=== PATIENT | male | born 1940 | race Caucasian/White ===

== ENCOUNTER 2017-03-09 11:11 | Outpatient (CLI) | payer OTHER ==
[~2017-03-09 11:11] MED LIST: COREG12.5 MG PO; COREG25 MG PO; CRESTOR10 MG PO; ECOTRIN LOW STR81 MG PO; ICAPS AREDS FORMULA PO; INVANZ1 GM IV; PLAVIX75 MG PO; VICODIN EQUIVAL1 TAB PO; VITAMIN D-32000 UNIT PO; ZESTRIL5 MG PO
--- NOTE | 2017-03-09 11:59 | DIAGNOSTIC IMAGING REPORT ---
PROCEDURE: XR FOOT 3 VIEWS BILATERAL INDICATION: HX OF OSTEOMYELITIS CURRENT CHRONIC WOUND AT 5TH METATARSAL TECHNIQUE: Three views. COMPARISON: Left foot films dated 06/24/2015 FINDINGS: RIGHT FOOT: There is an overlying soft tissue ulceration with indistinct cortical margin of the distal fifth metatarsal suspicious for osteomyelitis LEFT FOOT: Status post resection of the first MTP joint. No osteolysis or cortical destruction. IMPRESSION: 1. Ulceration and osteomyelitis right distal fifth metatarsal. 2. Left first MTP resection. No osteolysis or cortical destruction.
== END 2017-03-09 23:00 ==
LOC: XR SRH 11:11
DX: L97.519 Non-pressure chronic ulcer of other part of right foot with unspecified severity (principal); M86.8X7 Other osteomyelitis, ankle and foot

== ENCOUNTER 2017-05-04 09:58 | Outpatient (CLI) | payer OTHER ==
--- NOTE | 2017-05-04 10:20 | DIAGNOSTIC IMAGING REPORT ---
PROCEDURE: XR CHEST 2 VIEW INDICATION: PRE HYPERBARIC TREATMENT TECHNIQUE: PA and lateral views. COMPARISON: 06/26/2015 chest FINDINGS: Lungs are clear. Status post coronary artery bypass graft. Heart and mediastinum are normal. Thorax is normal. IMPRESSION: 1. Status post coronary artery bypass graft. 3. Otherwise negative chest.
== END 2017-05-04 23:00 ==
LOC: XR SRH 09:58
DX: Z01.812 Encounter for preprocedural laboratory examination (principal); Z98.61 Coronary angioplasty status

== ENCOUNTER 2017-06-09 07:24 | Inpatient (IN) | payer OTHER ==
[~2017-06-09] VITALS: Ht 182.9 cm; Wt 77.5 kg
--- NOTE | 2017-06-09 13:35 | DIAGNOSTIC IMAGING REPORT ---
PROCEDURE: CTA ABDOMEN PELVIS INDICATION: Severe back and abdominal pain. TECHNIQUE: 125 mL of Isovue 370 injected intravenously and axial images were obtained of the entire abdomen, and pelvis with 3D MIP sagittal and coronal reformations. COMPARISON: None. FINDINGS: ABDOMEN: 1.8 cm spiculated right lower lobe density. No effusion. Sternotomy and coronary stents. Normal heart size. Moderate atherosclerosis of the aorta without dissection or aneurysm. 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 There are several moderately dilated loops of then mid small bowel with air-fluid levels and normal caliber of the distal small bowel. Transition point is in the left abdomen with a beak live configuration which could be due to internal hernia or possibly an adhesion. There is wall thickening of a loop of small bowel in the left lower quadrant, just distal to the obstruction. There is a poorly marginated 2 cm hypoenhancing left hepatic lobe lesion and a 5 mm hypoenhancing right hepatic lobe lesion. Small calcified gallstone. Multiple small calcifications throughout the pancreas suggestive of chronic pancreatitis. Spleen, adrenal glands and right kidney are normal. Mild left renal cortical atrophy and small old lower pole cyst. Mild to moderate diverticulosis of the ascending, transverse and descending colon. Small ascites in the left abdomen. Small hiatal hernia. PELVIS: Severe atherosclerosis of the iliac and femoral vessels but no aneurysm or dissection. Normal appendix. Moderate sigmoid diverticulosis. Mildly enlarged prostate. Circumferential urinary bladder wall thickening. Small ascites. Mild degenerative changes of the spine. IMPRESSION: 1. Mid small bowel distention with air-fluid levels and transition point in the left abdomen consistent with a small bowel obstruction, possibly from an internal hernia or adhesion 2. Thickened loop of small bowel in the left lower quadrant, just distal to the obstruction, possibly from ischemia 3. 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 Small ascites 5. Cholelithiasis 6. Multiple of pancreatic calcifications versus suggestive of chronic pancreatitis 7. Diverticulosis 8. Enlarged prostate with urinary bladder wall thickening which may represent trabeculation. Consider cystitis. 9. Right lower lobe 1.8 cm spiculated pulmonary mass suspicious for neoplasm. 10. 2 cm hypoenhancing left hepatic lobe lesion, suspicious for a metastasis. 11. Results discussed with Dr. Rey
--- NOTE | 2017-06-09 13:36 | ED CLINICAL REPORT ---
Clinical Report - Physicians/[facility] [address] [place] [address] 06/09/2017 7:25 Patient: SANDY PAZ Time Seen: 0814; initial patient contact. Arrived- By private vehicle. Historian- patient. HISTORY OF PRESENT ILLNESS Chief Complaint: ABDOMINAL PAIN. It is described as "pain" and it is described as located in the periumbilical area and radiating to the low back. At its maximum, severity described as moderate. When seen in the E.D., severity described as moderate. Modifying factors. Not worsened by anything. Not relieved by anything. This started last night and is still present. It was abrupt in onset and has been constant. The patient has had nausea and loss of appetite. No vomiting or diarrhea. Similar symptoms previously: None. Recent medical care: Not recently seen/assessed. REVIEW OF SYSTEMS No black stools, difficulty with urination, pain with urination, bloody stools or fever. No chills. Last bowel movement: yesterday. He reports decreased flatus. He also says that he typically has 2 bowel movements each day. However he has had none since yesterday. All systems otherwise negative, except as recorded above. PAST HISTORY Peripheral Arterial Occlusive Disease. Bypass surgery. Spinal Stenosis. Hypercholesterolemia. Open wound of foot. Problems: Open wound of foot. Heart Disease. Peripheral Arterial Occlusive Disease. Bypass surgery. Spinal Stenosis. Hypercholesterolemia. Hypertension. Medications: ICaps AREDS Formula Oral 1, BID. Vitamin D3 Oral (Tablet 2000 unit) 1 tablet, daily. Coreg Oral (Tablet 25 mg) 1/2 tablet, AM (1 tab PM). Aspirin Oral (Tablet Chewable 81 mg) 1 tablet, daily. Plavix Oral (Tablet 75 mg) 1 tablet, daily. Crestor Oral (Tablet 10 mg) 1 tablet, daily. Lisinopril Oral (Tablet 30 mg) 1 tablet, daily. Allergies: Penicillin. Sulfa Antibiotics. SOCIAL HISTORY Former smoker. No alcohol use or drug use. FAMILY HISTORY Denies family medical history. ADDITIONAL NOTES The nursing notes have been reviewed. PHYSICAL EXAM Vital Signs: 06/09/2017 07:28 BP: 122/76. HR: 60. RR: 16. O2 saturation: 97%. Temp: 97.4 F. Pain level now: 09/06. Have been reviewed as normal. Appearance: Alert. Oriented X3. No acute distress. ENT: Pharynx normal. CVS: Normal heart rate and rhythm. Heart sounds normal. Respiratory: No respiratory distress. Breath sounds normal. Abdomen: Soft. Mild tenderness in the left side of the abdomen. No guarding or rebound tenderness. Bowel sounds normal. No organomegaly. No mass. Back: Normal inspection. No CVA tenderness. Skin: Skin warm and dry. Normal skin color. Extremities: No lower extremity edema. Neuro: Oriented X 3. LABS, X-RAYS, AND EKG EKG: EKG time: (0745). No acute process. No acute ischemia. Normal EKG. Normal sinus rhythm. Rate: 61. Normal P waves. Normal PRAKSAH. Normal QRS complex. Normal axis. Normal ST and T waves, QT and QTc. Prior EKG unavailable. The study has been interpreted contemporaneously by me. The study has been independently viewed by me. The EKG appears to be a good tracing. Interpretation time: 08. Abdominal CT: IMPRESSION: 1. Mid small bowel distention with air-fluid levels and transition point in the left abdomen consistent with a small bowel obstruction, possibly from an internal hernia or adhesion 2. Thickened loop of small bowel in the left lower quadrant, just distal to the obstruction, possibly from ischemia 3. 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 Small ascites 5. Cholelithiasis 6. Multiple of pancreatic calcifications versus suggestive of chronic pancreatitis 7. Diverticulosis 8. Enlarged prostate with urinary bladder wall thickening which may represent trabeculation. Consider cystitis. 9. Right lower lobe 1.8 cm spiculated pulmonary mass suspicious for neoplasm. 10. 2 cm hypoenhancing left hepatic lobe lesion, suspicious for a metastasis. The study was interpreted contemporaneously by me and discussed with the radiologist. Laboratory Tests: UA-Culture if indicated: (DANNY: 06/09/2017 11:00) ( MsgRcvd 06/09/2017 11:35) Final results Test Result Flag Units (Reference) URINE COLOR YELLOW URINE APPEARANCE CLEAR URINE GLUCOSE NEGATIVE (NEGATIVE) URINE BILIRUBIN NEGATIVE (NEGATIVE) URINE KETONE NEGATIVE (NEGATIVE) URINE SPECIFIC GRAVITY 1.015 (1.010-1.030) URINE PH 6.0 (5.0-8.0) URINE PROTEIN NEGATIVE (NEGATIVE) URINE UROBILINOGEN 0.2 EU/dL (0.2-1.0) URINE NITRITE NEGATIVE (NEGATIVE) URINE BLOOD NEGATIVE (NEGATIVE) URINE LEUK ESTERASE NEGATIVE (NEGATIVE) URINE RBC NONE SEEN rbc/hpf (0-1) URINE WBC 0-1 wbc/hpf (0-1) URINE EPITHELIAL CELLS 1-3 EPI/hpf (0-5) URINE BACTERIA FEW (1+) (NONE SEEN) URINE COMMENT CULT NOT INDICATED 10-15 HYALINE CASTS/lpf2+ MUCOUSURINE CULTURES ARE SET-UP BASED ON THE FOLLOWING CRITERIA:POSITIVE NITRITEPOSITIVE LEUKOCYTE ESTERASEGREATER THAN 10 WHITE BLOOD CELLSMODERATE (2+) OR GREATER BACTERIA CBC w Diff: (DANNY: 06/09/2017 07:45) ( MsgRcvd 06/09/2017 08:29) Final results Test Result Flag Units (Reference) WHITE BLOOD COUNT 8.7 K/uL (4.5-11.5) RED BLOOD COUNT 4.17 L M/uL (4.50-5.90) HEMOGLOBIN 12.5 L gm/dL (13.5-17.5) HEMATOCRIT 37.3 L % (41.0-53.0) MEAN CELL VOLUME 90 fL (80-100) MEAN CORPUSCULAR HGB 30 pg (26-34) MEAN CORPUSCULAR HGB CONC 34 g/dL (31-37) RED CELL DISTRIBUTION WIDTH 14.6 % (11.6-14.8) PLATELET COUNT 283 K/uL (150-400) NEUTROPHIL % 79.5 H % (50-75) LYMPH % 10.3 L % (25-40) MONO % 8.2 % (3-14) EOSINOPHIL % 1.8 % (0-4) BASOPHIL % 0.2 % (0-2) [id number]: (DANNY: 06/09/2017 08:44) ( MsgRcvd 06/09/2017 09:04) Final results Test Result Flag Units (Reference) D-DIMER QUANTITATIVE 0.51 ug/mLFEU (0.27-0.52) The primary value of this quantitative assay relates toits negative predictive value (i.e. exclusion) of pulmonaryembolism/deep vein thrombosis/DIC.Elevated levels of d-dimer may also occur with:, age, cancer, inflammation, liver disease,post-op, infection, hematoma, coronary disease, peripheralarteriopathy, bleeding disorders and thrombolytic treatment.Results should be correlated with other clinical andradiological data.Testing Methodology: Latex Immunoassay Lactate, Serum: (DANNY: 06/09/2017 09:25) ( [facility] 10[facility]11) Final results Test Result Flag Units (Reference) LACTIC ACID 0.5 mmol/L (0.4-2.0) CMP: (DANNY: 06/09/2017 07:45) ( [facility] 06/09/2017 08:39) Final results Test Result Flag Units (Reference) GLUCOSE 148 H mg/dL (70-110) BUN 32 H mg/dL (7-18) CREATININE 1.3 mg/dL (0.6-1.3) Estimated GFR 56.89 mL/min Estimated GFR- >60 mL/min Note: Persistent reduction over 3 months in eGFR<60 mL/min/1.73 m2 defines CKD. Patients with eGFR values>=60 mL/min/1.73 m2 may also have CKD if evidence ofpersistent proteinuria. Additional information may be foundat www.kidney.org. SODIUM 130 L mmol/L (136-145) POTASSIUM 4.1 mmol/L (3.5-5.1) CHLORIDE 100 mmol/L (98-107) CARBON DIOXIDE 30 mmol/L (21-32) CALCIUM 9.1 mg/dL (8.5-10.1) TOTAL PROTEIN 6.9 g/dL (6.4-8.2) ALBUMIN 3.8 g/dL (3.3-5.0) BILIRUBIN, TOTAL 0.6 mg/dL (0.0-1.0) ALKALINE PHOSPHATASE 69 U/L (46-116) AST (SGOT) 13 L U/L (15-37) ALT (SGPT) 17 U/L (12-78) LIPASE 256 U/L (73-393) AMYLASE 65 U/L (25-115) . PROGRESS AND PROCEDURES Course of Care: Patient is stable. Discussed case with patient's primary care provider, (Ruddy). Reviewed test results and need for additional work-up. Agreed upon treatment plan, need for patient follow-up and decision to admit. Health care provider will see patient in hospital. Patient/family counseled. Disposition orders written (in [facility]). Disposition: Admitted. CLINICAL IMPRESSION Cholelithiasis. Bowel obstruction. 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 (Electronically signed by Ronn Rey MD 06/09/2017 17:37)
--- NOTE | 2017-06-09 13:36 | ED ORDER SUMMARY ---
..... Patient: SANDY PAZ OrderSheet [facility] VisitID: [id number] [place] [address] 77y, M Registration Date/Time: 06/09/2017 ORDER SHEET Weight: 79.3 kg (stated) Allergies: Sulfa Antibiotics, Penicillin GENERAL ORDERS: CBC w Diff Urgent (08:22 06/09/2017 Augustin Ordonez) (Ack 8:28 PWeiler ER Tech1) (8:28 PWeiler ER Tech1) CMP Urgent (08:06/09/2017 Augustin Ordonez) (Ack 8:28 PWeiler ER Tech1) (8:28 PWeiler ER Tech1) UA-Culture if indicated Urgent (08:06/09/2017 Augustin Ordonez) (Ack 8:28 PWeiler ER Tech1) (12:11 PWeiler ER Tech1) Amylase Urgent (08:06/09/2017 Augustin Ordonez) (Ack 8:28 PWeiler ER Tech1) (8:28 PWeiler ER Tech1) Lipase Urgent (08:06/09/2017 Augustin Ordonez) (Ack 8:28 PWeiler ER Tech1) (8:28 PWeiler ER Tech1) D-Dimer Urgent (08:37 06/09/2017 Augustin Ordonez) (Ack 8:40 PWeiler ER Tech1) (8:40 PWeiler ER Tech1) Lactate, Serum Urgent (09:25 06/09/2017 Michelle ALTAMIRANO) (Ack 9:31 PWeiler ER Tech1) (9:41 PWeiler ER Tech1) CTA Abdomen/Pelvis (No) (see report) Urgent (12:18 06/09/2017 Michelle ALTAMIRANO) (Ack 12:20 PWeiler ER Tech1) (14:12 JBest R.N.) NG Tube (13:37 06/09/2017 Michelle ALTAMIRANO) (15:06 Rosario R.N.) MEDICATION ORDERS: IV FLUIDS: IV NS : initial bolus none -, then 1000 mL/hr for X1 (NOW) (08:19 06/09/2017 Augustin Ordonez) (8:39 JBest R.N.) Toradol IV 30 mg (NOW) (08:22 06/09/2017 uAgustin Ordonez) (8:40 Rosario R.N.) Zofran IV 4 mg (NOW) (08:22 06/09/2017 Augustin Ordonez) (8:40 Rosario R.N.) Dilaudid IV 0.5 mg (HIGH ALERT MEDICATION, NOW) (16:01 06/09/2017 Michelle ALTAMIRANO) (16:04 AIMEEest R.N.) ORDER SHEET NOTES: [Electronically signed by Ronn Rey MD (17:37 06/09/2017)] [Electronically signed by Ally Adamson R.N. (19:37 06/09/2017)] [Electronically locked/signed by Ally Adamson R.N. (19:37 06/09/2017)]
--- NOTE | 2017-06-09 13:36 | ED NURSING NOTES ---
Clinical Report - Nurses [facility] [address] [place] [address] 06/09/2017 7:25 Patient: SANDY PAZ TRIAGE Triage time 07:28. Acuity: LEVEL 3. Chief Complaint: BACK PAIN. SEPSIS SCREEN: Sepsis Screen. Negative (no infection suspected/documented). --07:37 Ally Adamson R.N. 07:28 06/09/17. BP: 122/76. HR: 60. RR: 16. O2 saturation: 97%. Temp: 97.4 F (axillary). Pain level now: 09/06. --07:37 Ally Adamson R.N. Weight: 79.3 kg stated. Height/Length: 71 inches Per Patient. BMI: 24.4. --07:36 Ally Adamson R.N. Medications Lisinopril Oral (Tablet 30 mg) 1 tablet, daily. --07:31 Ally Adamson R.N. Crestor Oral (Tablet 10 mg) 1 tablet, daily. --07:31 Ally Adamson R.N. Plavix Oral (Tablet 75 mg) 1 tablet, daily. --07:31 Ally Adamson R.N. Aspirin Oral (Tablet Chewable 81 mg) 1 tablet, daily. --09:13 Ally Adamson R.N. Coreg Oral (Tablet 25 mg) 1/2 tablet, AM (1 tab PM). --09:14 Ally Adamson R.N. ICaps AREDS Formula Oral 1, BID. Vitamin D3 Oral (Tablet 2000 unit) 1 tablet, daily. --09:15 Ally Adamson R.N. The following entry was struck and corrected by Ally Adamson R.N., 09:12 (06/09/17) Reason for correction - other(correction). <<STRICKEN ENTRY-- Plavix Oral. --07:31 Ally Adamson R.N. --END STRIKE>> The following entry was struck and corrected by Ally Adamson R.N., 09:12 (06/09/17) Reason for correction - other(correction). <<STRICKEN ENTRY-- Lisinopril Oral. --07:31 Ally Adamson R.N. --END STRIKE>> The following entry was struck and corrected by Ally Adamson R.N., 09:11 (06/09/17) Reason for correction - other(correction). <<STRICKEN ENTRY-- Crestor Oral. --07:31 Ally Adamson R.N. --END STRIKE>>. Allergies Sulfa Antibiotics. --07:30 Ally Adamson R.N. Penicillin. --07:30 Ally Adamson R.N. History Historian: patient and family. Primary physician (Ruddy). ( Back pain started about 3am. Hasn't been able to get comfortable). This started last night. ( States it started in the abdomen and now is in the back and "kidney area"). He has had trouble walking. No history of recent trauma. ( Unable to have BM last night or this morning). 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 PAST MEDICAL HX: Hypertension. Heart disease. SURGERY HX: ( Quad bypass). SOCIAL HX: Former smoker. No alcohol use or drug use. No infectious disease exposure. SELF HARM ASSESSMENT: A self harm assessment was performed. The patient answered "no" to the question "Do you have thoughts of harming or killing yourself?". ABUSE ASSESSMENT: Abuse assessment: ("yes") The patient was asked "Do you feel safe in your home?". --07:37 Ally Adamson R.N. PROBLEMS: Peripheral Arterial Occlusive Disease. Bypass surgery. Spinal Stenosis. Hypercholesterolemia. --07:34 Ally Adamson R.N. Open wound of foot. --07:46 Ally Adamson R.N. The following entry was modified by Ally Adamson R.N., 07:46 <<STRICKEN ENTRY-- Hypertension. --07:33 Ally Adamson R.N. --END STRIKE>>. Interventions ID band on patient. To room. --07:37 Ally Adamson R.N. PHYSICAL ASSESSMENT GENERAL / NEURO / PSYCH: Alert. Oriented X 4. Appears in pain and anxious. GI / : Abdominal tenderness. ( pt bending over stating his abd area hurts). EXTREMITIES: Sensation intact in extremities. ROM of extremities within normal limits. --07:38 Ally Adamson R.N. GI / : ( Hasn't pee'd well since yesterday). --07:39 Ally Adamson R.N. EXTREMITIES: ( Pt being seen at hyperbaric clinic for bilateral foot sores). --07:43 Ally Adamson R.N. NURSING PROGRESS NOTES Monitoring of patient in place. Patient gowned. Reassurance given. Patient identifiers checked. Call light placed in reach. Bed placed in lowest position. Brakes of bed on. Patient ready for evaluation- ED physician notified. --07:39 Ally Adamson R.N. EKG time: (744). EKG was ordered, performed by a tech and shown to the ED physician. --07:51 Isreal Barahona, ER Tech1 07:57 06/09/2017 Site #1 started via IV in the left antecubital space with an 20g angiocath, with aseptic technique and good blood return; one attempt. Blood drawn: rainbow set. Labeled in the presence of the patient and sent to the lab. Saline lock flushed with 10 mL saline. --07:57 Yari Lo R.N. 08:39 06/09/2017 Started bag #1 1000 mL IV Fluids IV NS (Saline); bolus of 1000 mL over 1 hour(s) then at 1000 mL/hr over 1 hour(s) via site #1 via IV pump. Allergies verified and confirmed 5 rights. IV patency established. IV site checked: no pain, redness, or swelling. IV flushed thoroughly pre- and post-medication administration. --08:39 Ally Adamson R.N. 08:40 06/09/2017 Toradol IVP 30 mg given over 1 minute(s) via site #1. Allergies verified and confirmed 5 rights. IV patency established. IV site checked: no pain, redness, or swelling. IV flushed thoroughly pre- and post-medication administration. IVP given by RN. --08:40 Ally Adamson R.N. 08:40 06/09/2017 Zofran (Ondansetron HCl) IVP 4 mg given over 2 minute(s) via site #1. Allergies verified and confirmed 5 rights. IV patency established. IV site checked: no pain, redness, or swelling. IV flushed thoroughly pre- and post-medication administration. IVP given by RN. --08:40 Ally Adamson R.N. ( Tried to use urinal but was unsuccessful). --09:20 Ally Adamson R.N. 10:28 06/09/2017 IV Fluids IV NS Bag Change: bag #1 infused. Total amount infused: 1000. STARTED bag #2 (1000 mL) at 999 mcg/hr via IV pump. Confirmed 5 rights. IV patency established. IV site checked: no pain, redness, or swelling. IV flushed thoroughly. --10:28 Ally Adamson R.N. 12:06 06/09/2017 IV Fluids IV NS Discontinued: bag #2 completed. Total amount infused: 1000 mL. --12:21 Ally Adamson R.N. 16 fr NG tube inserted with minimal difficulty. Placement confirmed by auscultation and return of gastric contents. Tube secured. Patient tolerated procedure well. (15:08). --15:08 Ally Adamson R.N. Patient waiting for admit bed and (). --15:49 Ally Adamson R.N. 16:04 06/09/2017 Dilaudid (HYDROmorphone HCl PF) IVP 0.5 mg given over 1 minute(s) via site #1. Allergies verified, confirmed 5 rights and sedative warning given to the patient. IV patency established. IV site checked: no pain, redness, or swelling. IV flushed thoroughly pre- and post-medication administration. IVP given by RN. --16:04 Ally Adamson R.N. 11:45 06/09/17. BP: 145/56. HR: 62. O2 saturation: 97%. --16:05 Ally Adamson R.N. DISPOSITION / DISCHARGE Departure time: 16:22. Condition at departure: improved. Admitted to Acute Care (204A). --16:22 Ally Adamson R.N. 16:21 06/09/17. BP: 173/63. HR: 62. RR: 16. O2 saturation: 98%. Temp: 98.4 F. Pain level now: 02/04. --16:22 Ally Adamson R.N. Locked/Released at 06/09/2017 19:37 by Ally Adamson R.N.
--- NOTE | 2017-06-09 13:36 | ED ORDER SUMMARY ---
..... Patient: SANDY PAZ OrderSheet [facility] VisitID: [id number] [place] [address] 77y, M Registration Date/Time: 06/09/2017 ORDER SHEET Weight: 79.3 kg (stated) Allergies: Sulfa Antibiotics, Penicillin GENERAL ORDERS: CBC w Diff Urgent (08:22 06/09/2017 Augustin Ordonez) (Ack 8:28 PWeiler ER Tech1) (8:28 PWeiler ER Tech1) CMP Urgent (08:06/09/2017 Augustin Ordonez) (Ack 8:28 PWeiler ER Tech1) (8:28 PWeiler ER Tech1) UA-Culture if indicated Urgent (08:06/09/2017 Augustin Ordonez) (Ack 8:28 PWeiler ER Tech1) (12:11 PWeiler ER Tech1) Amylase Urgent (08:06/09/2017 Augustin Ordonez) (Ack 8:28 PWeiler ER Tech1) (8:28 PWeiler ER Tech1) Lipase Urgent (08:06/09/2017 Augustin Ordonez) (Ack 8:28 PWeiler ER Tech1) (8:28 PWeiler ER Tech1) D-Dimer Urgent (08:37 06/09/2017 Augustin Ordonez) (Ack 8:40 PWeiler ER Tech1) (8:40 PWeiler ER Tech1) Lactate, Serum Urgent (09:25 06/09/2017 Michelle ALTAMIRANO) (Ack 9:31 PWeiler ER Tech1) (9:41 PWeiler ER Tech1) CTA Abdomen/Pelvis (No) (see report) Urgent (12:18 06/09/2017 Michelle ALTAMIRANO) (Ack 12:20 PWeiler ER Tech1) (14:12 JBest R.N.) NG Tube (13:37 06/09/2017 Michelle ALTAMIRANO) (15:06 Rosario R.N.) MEDICATION ORDERS: IV FLUIDS: IV NS : initial bolus none -, then 1000 mL/hr for X1 (NOW) (08:19 06/09/2017 Augustin Ordonez) (8:39 JBest R.N.) Toradol IV 30 mg (NOW) (08:22 06/09/2017 Augustin Ordonez) (8:40 Rosario R.N.) Zofran IV 4 mg (NOW) (08:22 06/09/2017 Augustin Ordonez) (8:40 Rosario R.N.) Dilaudid IV 0.5 mg (HIGH ALERT MEDICATION, NOW) (16:01 06/09/2017 Michelle ALTAMIRANO) (16:04 AIMEEest R.N.) ORDER SHEET NOTES: [Electronically signed by Ronn Rey MD (17:37 06/09/2017)] [Electronically signed by Ally Adamson R.N. (19:37 06/09/2017)] [Electronically locked/signed by Ally Adamson R.N. (19:37 06/09/2017)]
--- NOTE | 2017-06-09 13:36 | ED CLINICAL REPORT ---
Clinical Report - Physicians/Mid Levels [facility] [address] [place] [address] 06/09/2017 7:25 Patient: SANDY PAZ Time Seen: 0814; initial patient contact. Arrived- By private vehicle. Historian- patient. HISTORY OF PRESENT ILLNESS Chief Complaint: ABDOMINAL PAIN. It is described as "pain" and it is described as located in the periumbilical area and radiating to the low back. At its maximum, severity described as moderate. When seen in the E.D., severity described as moderate. Modifying factors. Not worsened by anything. Not relieved by anything. This started last night and is still present. It was abrupt in onset and has been constant. The patient has had nausea and loss of appetite. No vomiting or diarrhea. Similar symptoms previously: None. Recent medical care: Not recently seen/assessed. REVIEW OF SYSTEMS No black stools, difficulty with urination, pain with urination, bloody stools or fever. No chills. Last bowel movement: yesterday. He reports decreased flatus. He also says that he typically has 2 bowel movements each day. However he has had none since yesterday. All systems otherwise negative, except as recorded above. PAST HISTORY Peripheral Arterial Occlusive Disease. Bypass surgery. Spinal Stenosis. Hypercholesterolemia. Open wound of foot. Problems: Open wound of foot. Heart Disease. Peripheral Arterial Occlusive Disease. Bypass surgery. Spinal Stenosis. Hypercholesterolemia. Hypertension. Medications: ICaps AREDS Formula Oral 1, BID. Vitamin D3 Oral (Tablet 2000 unit) 1 tablet, daily. Coreg Oral (Tablet 25 mg) 1/2 tablet, AM (1 tab PM). Aspirin Oral (Tablet Chewable 81 mg) 1 tablet, daily. Plavix Oral (Tablet 75 mg) 1 tablet, daily. Crestor Oral (Tablet 10 mg) 1 tablet, daily. Lisinopril Oral (Tablet 30 mg) 1 tablet, daily. Allergies: Penicillin. Sulfa Antibiotics. SOCIAL HISTORY Former smoker. No alcohol use or drug use. FAMILY HISTORY Denies family medical history. ADDITIONAL NOTES The nursing notes have been reviewed. PHYSICAL EXAM Vital Signs: 06/09/2017 07:28 BP: 122/76. HR: 60. RR: 16. O2 saturation: 97%. Temp: 97.4 F. Pain level now: 09/06. Have been reviewed as normal. Appearance: Alert. Oriented X3. No acute distress. ENT: Pharynx normal. CVS: Normal heart rate and rhythm. Heart sounds normal. Respiratory: No respiratory distress. Breath sounds normal. Abdomen: Soft. Mild tenderness in the left side of the abdomen. No guarding or rebound tenderness. Bowel sounds normal. No organomegaly. No mass. Back: Normal inspection. No CVA tenderness. Skin: Skin warm and dry. Normal skin color. Extremities: No lower extremity edema. Neuro: Oriented X 3. LABS, X-RAYS, AND EKG EKG: EKG time: (0745). No acute process. No acute ischemia. Normal EKG. Normal sinus rhythm. Rate: 61. Normal P waves. Normal PRAKASH. Normal QRS complex. Normal axis. Normal ST and T waves, QT and QTc. Prior EKG unavailable. The study has been interpreted contemporaneously by me. The study has been independently viewed by me. The EKG appears to be a good tracing. Interpretation time: 08. Abdominal CT: IMPRESSION: 1. Mid small bowel distention with air-fluid levels and transition point in the left abdomen consistent with a small bowel obstruction, possibly from an internal hernia or adhesion 2. Thickened loop of small bowel in the left lower quadrant, just distal to the obstruction, possibly from ischemia 3. 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 Small ascites 5. Cholelithiasis 6. Multiple of pancreatic calcifications versus suggestive of chronic pancreatitis 7. Diverticulosis 8. Enlarged prostate with urinary bladder wall thickening which may represent trabeculation. Consider cystitis. 9. Right lower lobe 1.8 cm spiculated pulmonary mass suspicious for neoplasm. 10. 2 cm hypoenhancing left hepatic lobe lesion, suspicious for a metastasis. The study was interpreted contemporaneously by me and discussed with the radiologist. Laboratory Tests: UA-Culture if indicated: (DANNY: 06/09/2017 11:00) ( MsgRcvd 06/09/2017 11:35) Final results Test Result Flag Units (Reference) URINE COLOR YELLOW URINE APPEARANCE CLEAR URINE GLUCOSE NEGATIVE (NEGATIVE) URINE BILIRUBIN NEGATIVE (NEGATIVE) URINE KETONE NEGATIVE (NEGATIVE) URINE SPECIFIC GRAVITY 1.015 (1.010-1.030) URINE PH 6.0 (5.0-8.0) URINE PROTEIN NEGATIVE (NEGATIVE) URINE UROBILINOGEN 0.2 EU/dL (0.2-1.0) URINE NITRITE NEGATIVE (NEGATIVE) URINE BLOOD NEGATIVE (NEGATIVE) URINE LEUK ESTERASE NEGATIVE (NEGATIVE) URINE RBC NONE SEEN rbc/hpf (0-1) URINE WBC 0-1 wbc/hpf (0-1) URINE EPITHELIAL CELLS 1-3 EPI/hpf (0-5) URINE BACTERIA FEW (1+) (NONE SEEN) URINE COMMENT CULT NOT INDICATED 10-15 HYALINE CASTS/lpf2+ MUCOUSURINE CULTURES ARE SET-UP BASED ON THE FOLLOWING CRITERIA:POSITIVE NITRITEPOSITIVE LEUKOCYTE ESTERASEGREATER THAN 10 WHITE BLOOD CELLSMODERATE (2+) OR GREATER BACTERIA CBC w Diff: (DANNY: 06/09/2017 07:45) ( MsgRcvd 06/09/2017 08:29) Final results Test Result Flag Units (Reference) WHITE BLOOD COUNT 8.7 K/uL (4.5-11.5) RED BLOOD COUNT 4.17 L M/uL (4.50-5.90) HEMOGLOBIN 12.5 L gm/dL (13.5-17.5) HEMATOCRIT 37.3 L % (41.0-53.0) MEAN CELL VOLUME 90 fL (80-100) MEAN CORPUSCULAR HGB 30 pg (26-34) MEAN CORPUSCULAR HGB CONC 34 g/dL (31-37) RED CELL DISTRIBUTION WIDTH 14.6 % (11.6-14.8) PLATELET COUNT 283 K/uL (150-400) NEUTROPHIL % 79.5 H % (50-75) LYMPH % 10.3 L % (25-40) MONO % 8.2 % (3-14) EOSINOPHIL % 1.8 % (0-4) BASOPHIL % 0.2 % (0-2) [id number]: (DANNY: 06/09/2017 08:44) ( MsgRcvd 06/09/2017 09:04) Final results Test Result Flag Units (Reference) D-DIMER QUANTITATIVE 0.51 ug/mLFEU (0.27-0.52) The primary value of this quantitative assay relates toits negative predictive value (i.e. exclusion) of pulmonaryembolism/deep vein thrombosis/DIC.Elevated levels of d-dimer may also occur with:, age, cancer, inflammation, liver disease,post-op, infection, hematoma, coronary disease, peripheralarteriopathy, bleeding disorders and thrombolytic treatment.Results should be correlated with other clinical andradiological data.Testing Methodology: Latex Immunoassay Lactate, Serum: (DANNY: 06/09/2017 09:25) ( [facility] [place] [facility] [facility]11) Final results Test Result Flag Units (Reference) LACTIC ACID 0.5 mmol/L (0.4-2.0) CMP: (DANNY: 06/09/2017 07:45) ( [facility] [place] 06/09/2017 08:39) Final results Test Result Flag Units (Reference) GLUCOSE 148 H mg/dL (70-110) BUN 32 H mg/dL (7-18) CREATININE 1.3 mg/dL (0.6-1.3) Estimated GFR 56.89 mL/min Estimated GFR- >60 mL/min Note: Persistent reduction over 3 months in eGFR<60 mL/min/1.73 m2 defines CKD. Patients with eGFR values>=60 mL/min/1.73 m2 may also have CKD if evidence ofpersistent proteinuria. Additional information may be foundat www.[email or web address].org. SODIUM 130 L mmol/L (136-145) POTASSIUM 4.1 mmol/L (3.5-5.1) CHLORIDE 100 mmol/L (98-107) CARBON DIOXIDE 30 mmol/L (21-32) CALCIUM 9.1 mg/dL (8.5-10.1) TOTAL PROTEIN 6.9 g/dL (6.4-8.2) ALBUMIN 3.8 g/dL (3.3-5.0) BILIRUBIN, TOTAL 0.6 mg/dL (0.0-1.0) ALKALINE PHOSPHATASE 69 U/L (46-116) AST (SGOT) 13 L U/L (15-37) ALT (SGPT) 17 U/L (12-78) LIPASE 256 U/L (73-393) AMYLASE 65 U/L (25-115) . PROGRESS AND PROCEDURES Course of Care: Patient is stable. Discussed case with patient's primary care provider, (Ruddy). Reviewed test results and need for additional work-up. Agreed upon treatment plan, need for patient follow-up and decision to admit. Health care provider will see patient in hospital. Patient/family counseled. Disposition orders written (in [facility]). Disposition: Admitted. CLINICAL IMPRESSION Cholelithiasis. Bowel obstruction. 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 (Electronically signed by Ronn Rey MD 06/09/2017 17:37)
--- NOTE | 2017-06-09 14:27 | History & Physical Report ---
History Chief Complaint abdominal pain History of Present Illness Patient awoke at 3:00am this am with abdominal discomfort. He denied cp,sob. He wasn't stooling well and missed having his bm the night prior and then awoke again in am worse with discomfort and bowel. Still not able to have his regular daily BM. So he missed his hyperbaric treatment as not feeling well and went to the ER. In the ER he was found to have a SBO on CT and then noted to have a new mass in lung and liver at the same time. To be admitted for SBO. Patient History 1. Cellulitis 2. Sciatica 3. Chronic foot ulcer 4. Peripheral vascular disease 5. Hypertension 6. Hyperlipidemia 7. Hypomagnesemia 8. Bowel obstruction 9. Mesenteric ischemia 10. Lung mass 11. Liver mass Social History , no smoking, no drinking, no drugs. Family History Relation not specified for: NO FAMILY HISTORY NOTED Advance Directive None (FULL CODE discussed but no FT) Medications and Allergies Medications Current Medications Sig/Antonio Start time Last Medication Dose Route Stop Time Status Admin Sodium Chloride 1,000 ML ASDIRECTED 06/09 1415 UNV IV Aspirin 81mg /day Coreg 25mg po bid plavix 75mg daily crestor 10mg daily vit D zesteril 30mg / day Allergies Coded Allergies: Penicillins (Severe, "Broke out" palms & feet 06/24/15) Sulfa Drugs (Severe, "Broke out" palms & feet 06/24/15) Reconcile Medications Scheduled Medications Aspirin (Ecotrin Low Strength 81 MG) 81 MG TAB 81 MG PO DAILY (Reported) Carvedilol (Coreg 25 MG) 25 MG TAB 25 MG PO HS (Reported) Carvedilol (Coreg 12.5 MG) 12.5 MG TAB 12.5 MG PO AM (Reported) Cholecalciferol (Vitamin D-3 2000 Units) 2,000 UNIT TAB 2,000 UNITS PO DAILY (Reported) Clopidogrel Bisulfate (Plavix 75 MG) 75 MG TAB 75 MG PO DAILY (Reported) Ertapenem Sodium (Invanz) 1 GM INJ 1,000 MG IV DAILY Lisinopril (Zestril 5 MG) 5 MG TAB 5 MG PO DAILY (Reported) Multiple Vitamins W/ Minerals (Icaps Areds Formula) TAB 1 TAB PO BID ( Reported) Rosuvastatin Calcium (Crestor) 10 MG TAB 1 TAB PO DAILY (Reported) Scheduled PRN Medications Aceta 325 MG/ Hydroc 5 MG (Vicodin 5/325 MG) 1 TAB TAB 0 TAB PO Q4H PRN FOR PAIN Review of Systems Constitutional Denies: Fever, Chills. Eyes Denies: Pain, Vision Change. Respiratory Denies: SOB w/exertion, Wheezing. Cardiovascular Denies: Chest Pain, Edema. Gastrointestinal Abdominal Pain, Other (bloating). Genitourinary Denies: Dysuria, Frequency. Skin Other (foot sores w woundcare/HBOT). Physical Exam Vital Signs / I&Os VSS General Appearance Alert, Oriented X3, Cooperative HEENT Normal exam, Atraumatic Lungs Clear to auscultation, Normal air movement Neck Supple, No JVD Cardiovascular Normal exam, Regular rate and rhythm Abdomen Soft, + BS slightly decreased, mildly tender to palpation Extremities sores with dressing intact bilateral feet Psych/Mental Status Mental status normal LAB Results Laboratory Tests 06/09 06/09 06/09 1100 0925 0844 Chemistry Lactic Acid (0.4 - 2.0 mmol/L) 0.5 Coagulation D-Dimer, Quantitative (0.27 - 0.52 ug/mLFEU) 0.51 Urines Urine Color YELLOW Urine Appearance CLEAR Urine pH (5.0 - 8.0) 6.0 Ur Specific [place]landing (1.010 - 1.030) 1.015 Urine Protein (NEGATIVE) NEGATIVE Urine Ketones (NEGATIVE) NEGATIVE Urine Blood (NEGATIVE) NEGATIVE Urine Nitrite (NEGATIVE) NEGATIVE Urine Bilirubin (NEGATIVE) NEGATIVE Urine Urobilinogen (0.2 - 1.0 EU/dL) 0.2 Ur Leukocyte Esterase (NEGATIVE) NEGATIVE Urine RBC (0 - 1 rbc/hpf) NONE SEEN Urine WBC (0 - 1 wbc/hpf) 0-1 Ur Epithelial Cells (0 - 5 EPI/hpf) 1-3 Urine Bacteria (NONE SEEN) FEW (1+) Urine Glucose (NEGATIVE) NEGATIVE Urine Comment CULT NOT INDICATED 06/09 0745 Chemistry Plasma Sodium (136 - 145 mmol/L) 130 Plasma Potassium (3.5 - 5.1 mmol/L) 4.1 Plasma Chloride (98 - 107 mmol/L) 100 CO2 (Enzymatic) (21 - 32 mmol/L) 30 BUN (7 - 18 mg/dL) 32 Creatinine (0.6 - 1.3 mg/dL) 1.3 Est GFR ( Amer) (mL/min) >60 Est GFR (Non-Af Amer) (mL/min) 56.89 Glucose (70 - 110 mg/dL) 148 Plasma Calcium (8.5 - 10.1 mg/dL) 9.1 Total Bilirubin (0.0 - 1.0 mg/dL) 0.6 AST (15 - 37 U/L) 13 ALT (12 - 78 U/L) 17 Alkaline Phosphatase (46 - 116 U/L) 69 Total Protein (6.4 - 8.2 g/dL) 6.9 Albumin (3.3 - 5.0 g/dL) 3.8 Amylase (25 - 115 U/L) 65 Lipase (73 - 393 U/L) 256 Hematology WBC (4.5 - 11.5 K/uL) 8.7 RBC (4.50 - 5.90 M/uL) 4.17 Hgb (13.5 - 17.5 gm/dL) 12.5 Hct (41.0 - 53.0 %) 37.3 MCV (80 - 100 fL) 90 MCH (26 - 34 pg) 30 RDW (11.6 - 14.8 %) 14.6 Neut % (Auto) (50 - 75 %) 79.5 Lymph % (Auto) (25 - 40 %) 10.3 [place] % (Auto) (3 - 14 %) 8.2 Eos % (Auto) (0 - 4 %) 1.8 Baso % (Auto) (0 - 2 %) 0.2 Plt Count, EDTA (150 - 400 K/uL) 283 PUBS MCHC (31 - 37 g/dL) 34 Imaging CTA: IMPRESSION: 1. Mid small bowel distention with air-fluid levels and transition point in the left abdomen consistent with a small bowel obstruction, possibly from an internal hernia or adhesion 2. Thickened loop of small bowel in the left lower quadrant, just distal to the obstruction, possibly from ischemia 3. 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 Small ascites 5. Cholelithiasis 6. Multiple of pancreatic calcifications versus suggestive of chronic pancreatitis 7. Diverticulosis 8. Enlarged prostate with urinary bladder wall thickening which may represent trabeculation. Consider cystitis. 9. Right lower lobe 1.8 cm spiculated pulmonary mass suspicious for neoplasm. 10. 2 cm hypoenhancing left hepatic lobe lesion, suspicious for a metastasis. Assessment and Plan Problem List 1. Peripheral vascular disease Plan ocean transportation intermediary PVD and wound care with sores feet. 2. Hypertension Plan stable 3. Bowel obstruction Plan NGT at this time. 4. Mesenteric ischemia Plan Has no sig ischemia on eval 5. Lung mass Plan check on CT chest and also likely ct guided biopsy 6. Liver mass Plan Has liver with mass ? met.
[2017-06-09 16:31] VITALS: BP 189/86
--- NOTE | 2017-06-09 17:56 | NUR ---
I discussed with the patient their current medications, possible side effects, and answered questions.
--- NOTE | 2017-06-09 18:14 | NUR ---
PATIENT ARRIVED TO ROOM 204B AROUND 1615 FROM ED VIA STRETCHER AND FACILITY TECH TRANSPORT. PATIENT WAS ABLE TO AMBULATE WITH CANE INDEPENDENTLY FROM [facility] TO BED. STATED HIS PAIN WAS AT A TOLERABLE LEVEL 3/10 IN HIS ABDOMEN INTO HIS BACK. NG TUBE IN PLACE AND CLAMPED TO LEFT NARE AND SECURED TO NOSTRIL. AT SIDE. PATIENT MADE COMFORTABLE IN BED. DR. JENNINGS CALLED TO GET UPDATE ON PATIENT AROUND 1810.
[2017-06-09 18:23] VITALS: BP 170/81
--- NOTE | 2017-06-09 19:37 | ED MAR SUMMARY ---
..... Medication Administration Record [facility] [address] [place] [address] Patient: SANDY PAZ Visit ID: [id number] 77y, M Weight: 79.3 kg Height/Length: 71 in BMI: 24.4 ALLERGIES: Penicillin, Sulfa Antibiotics Start 08:39 06/09/2017 Ally Adamson R.N., Stop 12:06 06/09/2017 Ally Adamson R.N. Medication Administered: IV NS (SALINE), Dose: IV Fluids over 1 hour(s), Rate: 1000 mL/hr, Bolus: 1000 mL over 1 hour(s), Dispensed: 1000 mL bag, Site: #1 left AC. Medication Ordered: IV NS : initial bolus none -, then 1000 mL/hr for X1 (NOW). Given 08:40 06/09/2017 Ally Adamson R.N. Medication Administered: TORADOL [IVP], Dose: 30 mg IVP over 1 minute(s), Site: #1 left AC. Medication Ordered: Toradol IV 30 mg (NOW). Given 08:40 06/09/2017 Ally Adamson R.N. Medication Administered: ZOFRAN [IVP] (ONDANSETRON HCL), Dose: 4 mg IVP over 2 minute(s), Site: #1 left AC. Medication Ordered: Zofran IV 4 mg (NOW). Given 16:04 06/09/2017 Ally Adamson R.N. Medication Administered: DILAUDID [IVP] (HYDROMORPHONE HCL PF), Dose: 0.5 mg IVP over 1 minute(s), Site: #1 left AC. Medication Ordered: Dilaudid IV 0.5 mg (HIGH ALERT MEDICATION, NOW).
--- NOTE | 2017-06-09 19:37 | ED MED RECONCILIATION SUMMARY ---
Patient: SANDY PAZ Medication Reconciliation Report [facility] VisitID: [id number] [address] [place] [address] 77y, M Registration Date/Time: 06/09/2017 Weight: 79.3 kg Height/Length: 71 in. BMI: 24.4 ALLERGIES: Penicillin, Sulfa Antibiotics The patient's Home Medications are listed below: THE FOLLOWING MEDICATIONS NEED TO BE RECONCILED: Aspirin Oral (81 mg) 1 tablet, daily Coreg Oral (25 mg) 1/2 tablet, AM, 1 tab PM Crestor Oral (10 mg) 1 tablet, daily ICaps AREDS Formula Oral 1, BID Lisinopril Oral (30 mg) 1 tablet, daily Plavix Oral (75 mg) 1 tablet, daily Vitamin D3 Oral (2000 unit) 1 tablet, daily The source(s) of the original Home Medication information: Not obtained. The following Medications were given to the patient in the Emergency Department: IV NS IV Fluids bolus 1000 mL over 1 hour(s), then 1000 mL/hr, administered: 06/09/2017 8:39:00 AM Toradol [IVP] IVP 30 mg, administered: 06/09/2017 8:40:00 AM Zofran [IVP] IVP 4 mg, administered: 06/09/2017 8:40:00 AM Dilaudid [IVP] IVP 0.5 mg, administered: 06/09/2017 4:04:00 PM The following Medications were prescribed to the patient: None.
--- NOTE | 2017-06-09 19:37 | ED MED RECONCILIATION SUMMARY ---
Patient: SANDY PAZ Medication Reconciliation Report [facility] VisitID: [id number] [address] [place] [address] 77y, M Registration Date/Time: 06/09/2017 Weight: 79.3 kg Height/Length: 71 in. BMI: 24.4 ALLERGIES: Penicillin, Sulfa Antibiotics The patient's Home Medications are listed below: THE FOLLOWING MEDICATIONS NEED TO BE RECONCILED: Aspirin Oral (81 mg) 1 tablet, daily Coreg Oral (25 mg) 1/2 tablet, AM, 1 tab PM Crestor Oral (10 mg) 1 tablet, daily ICaps AREDS Formula Oral 1, BID Lisinopril Oral (30 mg) 1 tablet, daily Plavix Oral (75 mg) 1 tablet, daily Vitamin D3 Oral (2000 unit) 1 tablet, daily The source(s) of the original Home Medication information: Not obtained. The following Medications were given to the patient in the Emergency Department: IV NS IV Fluids bolus 1000 mL over 1 hour(s), then 1000 mL/hr, administered: 06/09/2017 8:39:00 AM Toradol [IVP] IVP 30 mg, administered: 06/09/2017 8:40:00 AM Zofran [IVP] IVP 4 mg, administered: 06/09/2017 8:40:00 AM Dilaudid [IVP] IVP 0.5 mg, administered: 06/09/2017 4:04:00 PM The following Medications were prescribed to the patient: None.
--- NOTE | 2017-06-09 19:37 | ED DISCHARGE INSTRUCTIONS ---
Patient: SANDY PAZ Madeline General Instructions [facility] VisitID: [id number] [address] [place] [address] 77y, M Registration Date/Time: 06/09/2017 Cholelithiasis. Bowel obstruction. (Electronically signed by Ronn Rey MD 06/09/2017 17:37)
--- NOTE | 2017-06-09 19:37 | ED DISCHARGE INSTRUCTIONS ---
Patient: SANYD PAZ Madeline General Instructions [facility] VisitID: [id number] [address] [place] [address] 77y, M Registration Date/Time: 06/09/2017 Cholelithiasis. Bowel obstruction. (Electronically signed by Ronn Rey MD 06/09/2017 17:37)
--- NOTE | 2017-06-09 19:37 | ED MAR SUMMARY ---
..... Medication Administration Record [facility] [address] [place] [address] Patient: SANDY PAZ Visit ID: [id number] 77y, M Weight: 79.3 kg Height/Length: 71 in BMI: 24.4 ALLERGIES: Penicillin, Sulfa Antibiotics Start 08:39 06/09/2017 Ally Adamson R.N., Stop 12:06 06/09/2017 Ally Adamson R.N. Medication Administered: IV NS (SALINE), Dose: IV Fluids over 1 hour(s), Rate: 1000 mL/hr, Bolus: 1000 mL over 1 hour(s), Dispensed: 1000 mL bag, Site: #1 left AC. Medication Ordered: IV NS : initial bolus none -, then 1000 mL/hr for X1 (NOW). Given 08:40 06/09/2017 Ally Adamson R.N. Medication Administered: TORADOL [IVP], Dose: 30 mg IVP over 1 minute(s), Site: #1 left AC. Medication Ordered: Toradol IV 30 mg (NOW). Given 08:40 06/09/2017 Ally Adamson R.N. Medication Administered: ZOFRAN [IVP] (ONDANSETRON HCL), Dose: 4 mg IVP over 2 minute(s), Site: #1 left AC. Medication Ordered: Zofran IV 4 mg (NOW). Given 16:04 06/09/2017 Ally Adamson R.N. Medication Administered: DILAUDID [IVP] (HYDROMORPHONE HCL PF), Dose: 0.5 mg IVP over 1 minute(s), Site: #1 left AC. Medication Ordered: Dilaudid IV 0.5 mg (HIGH ALERT MEDICATION, NOW).
[2017-06-09 22:32] VITALS: BP 136/67
[2017-06-10 02:18] VITALS: BP 140/69
--- NOTE | 2017-06-10 03:48 | NUR ---
PT HAVING AN UNEVENTFUL NIGHT, WITH C/O PAIN THAT WAS RELIEVED BY RX MEDICATION. PT ALSO REPORTING A SMALL AMOUNT OF NAUSEA THAT WAS RESOLVED WITH 1 DOSE OF IV ZOFRAN. A SMALL AMOUNT OF BROWN OUTPUT HAS BEEN PRODUCED BY HIS NG TUBE. PT HAS BEEN PROVIDED MOUTH SWABS AND HAS BEEN USING THEM TO PREVENT DRYNESS WHILE HE IS NPO.
--- NOTE | 2017-06-10 04:37 | NUR ---
PT REPORTING PAIN AND NAUSEA THIS MORNING. HE HAS BEEN UNABLE TO VOID SINCE BEING ADMITTED AND UPON BLADDER SCAN 830MLS OF URINE WAS PRESENT IN HIS BLADDER. PT TRIED ONE MORE TIME TO URINATE AND WAS ONLY ABLE TO GET OUT 100MLS. DR. JENNINGS NOTIFIED. RECEIVED ORDER TO PLACE [facility] C[facility].
[2017-06-10 06:27] VITALS: BP 102/63
--- NOTE | 2017-06-10 07:03 | Progress Note ---
Subjective General Patient states that he is doing pretty well. 77 yo male who was admitted with sbo. He is now passing a little gas no sig pain. No fevers. no BM. Has a lung mass and awaiting on SBO resolution for this. Physical Exam Vital Signs / I&Os Vital Signs Date Time Temp Pulse Resp B/P Pulse O2 O2 Flow FiO2 Ox Delivery Rate 06/10 0627 99.1 91 18 102/63 94 06/10 0218 97.9 67 15 140/69 95 Room Air 06/09 2232 98.6 83 16 136/67 94 Room Air 06/09 1823 99.0 76 18 170/81 98 Room Air 06/09 1631 97.9 76 18 189/86 99 Room Air I&O 06/10 0000 06/09 1600 06/09 0800 Intake Total 0 Output Total 0 Balance 0 General Appearance Alert, Cooperative Lungs Clear to auscultation, Normal air movement Cardiovascular Regular rate and rhythm Abdomen Soft, pos BS Extremities dressings intact on feet, no edema. LAB Results Laboratory Tests 06/10 06/09 06/09 0525 1100 0925 Chemistry Plasma Sodium (136 - 145 mmol/L) 144 Plasma Potassium (3.5 - 5.1 mmol/L) 4.5 Plasma Chloride (98 - 107 mmol/L) 106 CO2 (Enzymatic) (21 - 32 mmol/L) 30 BUN (7 - 18 mg/dL) 26 Creatinine (0.6 - 1.3 mg/dL) 1.1 Est GFR ( Amer) (mL/min) >60 Est GFR (Non-Af Amer) (mL/min) >60 Glucose (70 - 110 mg/dL) 84 Lactic Acid (0.4 - 2.0 mmol/L) 0.5 Plasma Calcium (8.5 - 10.1 mg/dL) 8.9 Total Bilirubin (0.0 - 1.0 mg/dL) 0.7 AST (15 - 37 U/L) 15 ALT (12 - 78 U/L) 14 Alkaline Phosphatase (46 - 116 U/L) 65 Total Protein (6.4 - 8.2 g/dL) 6.0 Albumin (3.3 - 5.0 g/dL) 3.5 Hematology WBC (4.5 - 11.5 K/uL) 10.8 RBC (4.50 - 5.90 M/uL) 4.11 Hgb (13.5 - 17.5 gm/dL) 12.3 Hct (41.0 - 53.0 %) 36.7 MCV (80 - 100 fL) 89 MCH (26 - 34 pg) 30 RDW (11.6 - 14.8 %) 14.9 Neut % (Auto) (50 - 75 %) 82.8 Lymph % (Auto) (25 - 40 %) 6.9 [place] % (Auto) (3 - 14 %) 8.8 Eos % (Auto) (0 - 4 %) 1.1 Baso % (Auto) (0 - 2 %) 0.4 Plt Count, EDTA (150 - 400 K/uL) 238 PUBS MCHC (31 - 37 g/dL) 34 Urines Urine Color YELLOW Urine Appearance CLEAR Urine pH (5.0 - 8.0) 6.0 Ur Specific [place] (1.010 - 1.030) 1.015 Urine Protein (NEGATIVE) NEGATIVE Urine Ketones (NEGATIVE) NEGATIVE Urine Blood (NEGATIVE) NEGATIVE Urine Nitrite (NEGATIVE) NEGATIVE Urine Bilirubin (NEGATIVE) NEGATIVE Urine Urobilinogen (0.2 - 1.0 EU/dL) 0.2 Ur Leukocyte Esterase (NEGATIVE) NEGATIVE Urine RBC (0 - 1 rbc/hpf) NONE SEEN Urine WBC (0 - 1 wbc/hpf) 0-1 Ur Epithelial Cells (0 - 5 EPI/hpf) 1-3 Urine Bacteria (NONE SEEN) FEW (1+) Urine Glucose (NEGATIVE) NEGATIVE Urine Comment CULT NOT INDICATED 06/09 06/09 0844 0745 Chemistry Plasma Sodium (136 - 145 mmol/L) 130 Plasma Potassium (3.5 - 5.1 mmol/L) 4.1 Plasma Chloride (98 - 107 mmol/L) 100 CO2 (Enzymatic) (21 - 32 mmol/L) 30 BUN (7 - 18 mg/dL) 32 Creatinine (0.6 - 1.3 mg/dL) 1.3 Est GFR ( Amer) (mL/min) >60 Est GFR (Non-Af Amer) (mL/min) 56.89 Glucose (70 - 110 mg/dL) 148 Plasma Calcium (8.5 - 10.1 mg/dL) 9.1 Total Bilirubin (0.0 - 1.0 mg/dL) 0.6 AST (15 - 37 U/L) 13 ALT (12 - 78 U/L) 17 Alkaline Phosphatase (46 - 116 U/L) 69 Total Protein (6.4 - 8.2 g/dL) 6.9 Albumin (3.3 - 5.0 g/dL) 3.8 Amylase (25 - 115 U/L) 65 Lipase (73 - 393 U/L) 256 Coagulation D-Dimer, Quantitative (0.27 - 0.52 ug/mLFEU) 0.51 Hematology WBC (4.5 - 11.5 K/uL) 8.7 RBC (4.50 - 5.90 M/uL) 4.17 Hgb (13.5 - 17.5 gm/dL) 12.5 Hct (41.0 - 53.0 %) 37.3 MCV (80 - 100 fL) 90 MCH (26 - 34 pg) 30 RDW (11.6 - 14.8 %) 14.6 Neut % (Auto) (50 - 75 %) 79.5 Lymph % (Auto) (25 - 40 %) 10.3 [place] % (Auto) (3 - 14 %) 8.2 Eos % (Auto) (0 - 4 %) 1.8 Baso % (Auto) (0 - 2 %) 0.2 Plt Count, EDTA (150 - 400 K/uL) 283 PUBS MCHC (31 - 37 g/dL) 34 Assessment and Plan Problem List 1. Lung mass Plan Will try to get biopsy of lung after SBO resolved 2. Liver mass Plan lkely med from other mass 3. Urinary retention Plan Has valencia now and will start flomax hx of turp 4. Bowel obstruction Plan Is to have SBFT today
--- NOTE | 2017-06-10 09:16 | NUR ---
In to see patient, who is in hospital for SBO and abnormal CT scan results. He is a patient of Dr. 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 Has been going to the [facility] as well. By reviewing chart in [facility] and pt report, Pt was last seen 2 days ago, at that time wounds were assessed and treated with a bioengineered graft -Grafix was applied to wound bases. These are meant to stay in place x 1week, and patient has appt with Dr. Ornelas next friday 06/15. Upon assessment, bilat feet wrapped with roll gauze and bilat great toes bandaged and wrapped as well, pt states these are for protection from pressure and shear on toes, as chronic wounds are on the lateral aspects of both feet: the lateral aspects of both Right and Left Metatarsal heads. Will leave dressings in place and reinforce only as needed, pts legs elevated in bed, will continue to monitor.
--- NOTE | 2017-06-10 09:39 | NUR ---
Pt has foam to right heel from [facility], states that it is still feeling tender, TruVue sample boot placed on foot, acheiving complete offloading of right heel, and supporting leg as well. Top strap left open to decrease pressure on wound. Pt states very comfortable, and is happy that he can take it home. will continue to monitor.
--- NOTE | 2017-06-10 10:32 | NUR ---
RADIOLOGY CALLED AND ASKED ME TO ADVANCE NG TUBE TO 72CM. WENT DOWN AND TO RADIOLOGY AND INCERTED IT TO 72CM.
[2017-06-10 11:26] VITALS: BP 116/69
[2017-06-10 13:38] VITALS: BP 146/76
--- NOTE | 2017-06-10 14:21 | NUR ---
NUTRITION NOTE: Pt admitted with dx/o SBO, SMA stenosisi, RLL pulmonary mass, left hepatic lobe mass. PMH includes: cellulitis, sciatica, chronic foot ulcer, PVD, HTN, hyperlipidemia, hypomagnesemia, bowel obstruction, mesenteric eschemia, osteomyelitis of foot ulcer and chronic wound care pt with hyperbaric tx. Spoke with pt this afternoon, states feeling better after NG out, starting full liquid diet, drinks ensure type supplements at home for protein and healing. Pt states that his diet is "pretty good, I don't eat garbage". Discussed impotance of lean proteins/protein sources for healing. Pt appears to have understanding of info given today. Pt was told that he needs to avoid K+ but unsure why, said "she called me and told me not to eat bananas or potatoes with skins". Encouraged pt to be sure and clarify this with PCP. Diet Rx: Full Liquids NKFA Wts: 77.5 kg Ht" 72" 67-84 kg BMI: 23.2 (may 2015) 76 kg Est Kcals: ~8417-8344 kcals per day Est Pro: ~77-115 g per day Est Fluids: ~2310 mla pwe sY Meds Incl: aspirin, carvedilol, lisniopril, clopidogrel, see eMar for complete list/details. Labs Rev'd Skin: right and left foot wounds, erythema left ankle Jason Score: 20 A: Pt appears anxious to eat after gastrograhin was successfull. Full liquid diet started. Pt drinking ensure suppment as he drinks similar product at home. Pt with increased healing needs. Rec advance diet and encourage PO and fluids, continue Ensure. P: Ensure between meals Large protein serving q meal with ensure 4 oz q meal
--- NOTE | 2017-06-10 14:47 | DIAGNOSTIC IMAGING REPORT ---
PROCEDURE: XR SBFT WITH GASTROGRAFIN INDICATION: SBO TECHNIQUE: [employer] image of the abdomen was obtained. The patient was administered 120 ml of gastrographin via the existing nasogastric tube. Films of the abdomen were obtained at 15 minutes and 1 hour . COMPARISON: CT abdomen 06/09/2017 FINDINGS: [employer] film demonstrates an NG tube in the stomach. Nonspecific bowel gas pattern. 15-minute and 1 hour film demonstrates normal caliber and mucosal pattern of the small bowel. There is gastrographin throughout the large bowel down to the rectum at 1 hour. IMPRESSION: 1. No evidence of a small bowel obstruction 2. Results discussed with Dr. Fox
--- NOTE | 2017-06-10 15:00 | NUR ---
chaparrita is doing very well this afternoon. he is resting comfortable in his bed. up indp to the bathroom. denies nausea and pain. started on clear/full liquid diet. tolerating well. pulled ng this afternoon. valencia came out when he got out of bed to go down to radiology. md aware. bladder scan scheduled for 1530. if volume greater than 250cc, staff is to reinsert a new valencia. patient will most likely dc home this evening.
--- NOTE | 2017-06-10 18:29 | Progress Note ---
Subjective General Patient is doing ok. Has urinary retention. Has been stooling lots. NO longer with abdominal pain. Physical Exam Vital Signs / I&Os Vital Signs Date Time Temp Pulse Resp B/P Pulse O2 O2 Flow FiO2 Ox Delivery Rate 06/10 1338 98.2 91 18 146/76 93 06/10 1126 98.2 100 18 116/69 95 06/10 0627 99.1 91 18 102/63 94 06/10 0218 97.9 67 15 140/69 95 Room Air 06/09 2232 98.6 83 16 136/67 94 Room Air I&O 06/10 0000 06/09 1600 06/09 0800 Intake Total 0 Output Total 0 Balance 0 General Appearance Alert, Cooperative HEENT Normal exam Lungs Clear to auscultation, Normal air movement Cardiovascular Regular rate and rhythm Abdomen Soft, No tenderness Assessment and Plan Problem List 1. Bowel obstruction Plan Is resolved and normal SBFT. d/c home f/u in clinic next week. Restart on the HBOT tuesday. Will work up lung mass in around a month after off hbot. Will have urology f/u for retention 2. Urinary retention 3. Lung mass
[2017-06-10] MEDS ORDERED: TAMSULOSIN HCL0.4 MG PO (18:30)
--- NOTE | 2017-06-10 18:32 | Provider's Discharge Care Plan ---
Problem, Goal, Plan Problem List 1. Bowel obstruction Instructions: Follow up as directed 2. Urinary retention Instructions: Take meds as directed
--- NOTE | 2017-06-10 18:32 | Provider's Discharge Care Plan ---
Problem, Goal, Plan Problem List 1. Bowel obstruction Instructions: Follow up as directed 2. Urinary retention Instructions: Take meds as directed
--- NOTE | 2017-06-10 19:22 | NUR ---
Patient stable this shift. Bladder scan done post void and 235cc left. Dr. Fox ordered valencia catheter to be replaced. Patient is discharging home with valencia catheter and teaching completed prior to patient leaving. NO further questions. DC for home at 192.
== END 2017-06-10 19:30 | disposition home or self-care (01) | DRG 389 ==
LOC: ED SRH 07:24 → TRANS SRH 13:57 → ACUTE2 SRH 14:17
PROVIDERS: ADMIT Emergency Medicine
PROC: 0D9670Z Drainage of Stomach with Drainage Device, Via Natural or Artificial Opening (ICD-10-PCS; principal; 2017-06-09)
PROC: 0T9B70Z Drainage of Bladder with Drainage Device, Via Natural or Artificial Opening (ICD-10-PCS; 2017-06-10)
DX: K56.60 Unspecified intestinal obstruction (principal); I70.249 Atherosclerosis of native arteries of left leg with ulceration of unspecified site; I70.239 Atherosclerosis of native arteries of right leg with ulceration of unspecified site; L97.929 Non-pressure chronic ulcer of unspecified part of left lower leg with unspecified severity; L97.919 Non-pressure chronic ulcer of unspecified part of right lower leg with unspecified severity; K55.1 Chronic vascular disorders of intestine; J98.4 Other disorders of lung; K76.9 Liver disease, unspecified; R33.9 Retention of urine, unspecified; I10 Essential (primary) hypertension; Z79.02 Long term (current) use of antithrombotics/antiplatelets
CPT/HCPCS: 81523; 90004; 90074; 90100; 91556; 92031; 92235; 92530; 95059